=== PATIENT | female | born 1965 | race Two or more races ===

== ENCOUNTER 2024-01-31 08:38 | Emergency (ER) | payer BC ==
[~2024-01-31] VITALS: Ht 152.4 cm; Wt 53.1 kg
[2024-01-31 08:47] VITALS: BP 135/74; TEMP 98.6
[2024-01-31 09:16] VITALS: O2SAT 100
== END 2024-01-31 09:17 | disposition home or self-care (01) ==
LOC: ER 08:44
DX: S90.821A Blister (nonthermal), right foot, initial encounter (principal); X58.XXXA Exposure to other specified factors, initial encounter; Y93.89 Activity, other specified; Y92.89 Other specified places as the place of occurrence of the external cause; Y99.8 Other external cause status